=== PATIENT | male | born 1940 | race Caucasian/White ===

== ENCOUNTER 2018-03-03 07:32 | Day surgery (SDC) | payer OTHER ==
[2018-02-28 16:41] LABS: BASOPHILS % (AUTO) 0.9 % (0.0-5.0); EOSINOPHILS % (AUTO) 2.8 % (0.0-8.0); HEMATOCRIT 42.3 % (42-54); LYMPHOCYTES % (AUTO) 23.9 % (21.0-51.0); MEAN CORPUSCULAR HEMOGLOBIN 32.1 pg (27.0-33.0); MEAN CORPUSCULAR HGB CONC 33.4 g/dL (32.0-36.0); MEAN CORPUSCULAR VOLUME 96.1 fL (79-99); MONOCYTES % (AUTO) 9.2 % (3.0-13.0); NEUTROPHILS % (AUTO) 63.2 % (40.0-77.0); NUCLEATED RED BLOOD CELLS 0.2 % (0.0-0.19); PLATELET COUNT (AUTO) 100 K/uL (130-400); RED CELL DISTRIBUTION WIDTH 13.4 % (11.0-15.5); WHITE BLOOD COUNT (AUTO) 5.3 K/uL (4.8-10.8)
[2018-02-28 16:50] LABS: CREATININE 0.9 mg/dL (0.5-1.5); POTASSIUM 4.5 mmol/L (3.5-5.1)
[2018-02-28 16:52] VITALS: BP 149/78
[2018-03-03] VITALS (14 sets, daily range): BP systolic 120–147; BP diastolic 58–97
[~2018-03-03] VITALS: Ht 186.7 cm; Wt 77.2 kg
[2018-03-03] MEDS: CEFAZOLIN SODIUM 1 GM VIAL IVP SCH ×2 (08:00→09:20)
[2018-03-03] MEDS ORDERED: LACTATED RINGERS 1000ML 1,000 ML IV ONE (08:14)
--- NOTE | 2018-03-03 08:30 | NUR ---
VALUABLES: SEND TO SECURITY, SEE ATTACHED SHEET.
[2018-03-03] MEDS ORDERED: NEOSTIGMINE 5MG/5ML SYR IV ONE (09:09)
[2018-03-03] MEDS ORDERED: ONDANSETRON HCL 4 MG/2 ML VIAL ONE (09:09)
[2018-03-03] MEDS ORDERED: GLYCOPYRROLATE 1 MG/5 ML SYRINGE ONE (09:09)
[2018-03-03] MEDS ORDERED: LIDOCAINE PF 2% 5ML ABBOJECT ONE (09:09)
[2018-03-03] MEDS ORDERED: LIDOCAINE HCL 4% LTA SOL 4 ML VIAL ONE (09:09)
[2018-03-03] MEDS ORDERED: DEXAMETHASONE SOD PHOSPHATE 4 MG/ML 1ML VIAL ONE (09:09)
[2018-03-03] MEDS ORDERED: PROPOFOL 10 MG/ML 20ML VIAL IV ONE (09:10)
[2018-03-03] MEDS ORDERED: FENTANYL CITRATE PF 50 MCG/1 ML 2ML VIAL ONE (09:10)
[2018-03-03] MEDS ORDERED: ROCURONIUM 10MG/1ML SYR 10 MG/ML ML ONE (09:10)
[2018-03-03] MEDS ORDERED: LIDOCAINE HCL-MPF 0.5% 50ML VIAL IJ ONE (09:32)
[2018-03-03] MEDS ORDERED: NEOMY SULF/BACITRAC ZN/POLY OINT 30GM TUBE TP ONE (09:32)
[2018-03-03] MEDS ORDERED: BUPIVACAINE/EPI/PF 0.5% 30ML VIAL IJ ONE (09:33)
[2018-03-03] MEDS ORDERED: NEOMY SULF/POLYMYXIN B SULFATE 1 ML AMPUL IR ONE (09:33)
--- NOTE | 2018-03-03 11:15 | NUR ---
SWELLING TO RT ANKLE ,STATES DUE TO FALL 6 WEEKS AGO,,,BUT ALOT BETTER Addendum: 03/03/18 at 1236 by MICHELLE ESCUDERO LVN LVN Amended: Links added.
--- NOTE | 2018-03-03 12:00 | NUR ---
REINFORCED PT NOT TO WET DRESSING FOR 48 HOURS AND MONITOR FOR S/S OF INFECTION,NOT REMOVE STERI STRIPS
--- NOTE | 2018-03-03 12:14 | NUR ---
PT VERBALIZES UNDERSTANDING OF INSTRUCTIONS,,,PRESCRIPTION GIVEN TO PT Addendum: 03/03/18 at 1215 by MICHELLE ESCUDERO LVN LVN Amended: Links added.
== END 2018-03-03 12:10 | disposition home or self-care (01) ==
LOC: DAH 07:32
PROVIDERS: ATTEND Surgery
DX: K40.90 Unilateral inguinal hernia, without obstruction or gangrene, not specified as recurrent (principal); Z98.890 Other specified postprocedural states; M19.90 Unspecified osteoarthritis, unspecified site
CPT/HCPCS: 36415; 49505; 80048; 85025; A4450; A4452; A4510; A4600; A4649; C1781; J0690; J1100; J2001; J2405; J2704; J2710; J3010; J3490 ×3; J7120; 93005